=== PATIENT | female | born 1995 | race Caucasian/White ===

== ENCOUNTER 2018-04-14 12:08 | Emergency (ER) | payer OTHER ==
[~2018-04-14] VITALS: Ht 170.2 cm; Wt 58.6 kg
[2018-04-14 12:10] VITALS: BP 149/87; PULSE 95; TEMP 98.9
[2018-04-14] MEDS ORDERED: TRI-LO-MARZIA1 EACH PO (12:21)
== END 2018-04-14 13:15 | disposition home or self-care (01) ==
LOC: COL.ER 12:08
DX: S61.211A Laceration without foreign body of left index finger without damage to nail, initial encounter (principal); S61.213A Laceration without foreign body of left middle finger without damage to nail, initial encounter; Z88.0 Allergy status to penicillin; W25.XXXA Contact with sharp glass, initial encounter; Y92.89 Other specified places as the place of occurrence of the external cause

== ENCOUNTER 2018-04-23 13:39 | Outpatient (RCR) | payer OTHER ==
[~2018-04-23 13:39] MED LIST: TRI-LO-MARZIA1 EACH PO
== END 2018-05-03 11:22 | disposition home or self-care (01) ==
LOC: WSOH 13:39
DX: S61.211A Laceration without foreign body of left index finger without damage to nail, initial encounter (principal); S61.213A Laceration without foreign body of left middle finger without damage to nail, initial encounter; W25.XXXA Contact with sharp glass, initial encounter; Y92.214 College as the place of occurrence of the external cause; Y99.0 Civilian activity done for income or pay; Z79.1 Long term (current) use of non-steroidal anti-inflammatories (NSAID); Z79.899 Other long term (current) drug therapy

== ENCOUNTER → 2020-07-20 | Outpatient (CLI) | payer OTHER | LOC: COL.RAD 13:32 | DX: R10.11 Right upper quadrant pain (principal) ==